=== PATIENT | male | born 1960 | race Caucasian/White ===

== ENCOUNTER 2016-08-04 09:03 | Outpatient (RCR) | payer BC ==
[~2016-08-04 09:03] MED LIST: ALEVE 220MG220 MG PO; HCTZ12.5TAB PO; NORCO 325 MG-51 TAB PO; NORVASC 5MG5 MG/TAB PO; NORVASC2.5 MG PO; PROTONIX20 MG PO
== END 2016-08-19 08:23 | disposition home or self-care (01) ==
LOC: MKS.ESL.PT 09:03
DX: Z01.818 Encounter for other preprocedural examination (principal); M25.861 Other specified joint disorders, right knee

== ENCOUNTER 2016-09-11 12:30 | Outpatient (RCR) | payer BC | END 2016-10-31 10:21 | disposition home or self-care (01) | LOC: MKS.ESL.PT 12:30 | DX: M25.561 Pain in right knee (principal) ==

== ENCOUNTER 2016-11-24 22:23 | Observation (INO) | payer BC ==
[2016-11-24] VITALS (36 sets, daily range): BP systolic 168; BP diastolic 103; PULSE 94; TEMP 98.4; O2SAT 88–99
[~2016-11-24] VITALS: Ht 177.8 cm; Wt 118.3 kg
[2016-11-24] MEDS ORDERED: FLEXERIL 1010 MG/TAB PO (23:49)
[2016-11-24] MEDS ORDERED: ULTRAM 50MG TAB50 MG PO (23:50)
[2016-11-24] MEDS ORDERED: PRILOSEC 20MG20 MG PO (23:50)
[2016-11-24] MEDS ORDERED: FLONASE NASAL S16 GM NS (23:51)
[2016-11-24] MEDS ORDERED: HYDRODIURIL50 MG PO (23:51)
[2016-11-24] MEDS ORDERED: CLARITIN 1010 MG/TAB PO (23:52)
[2016-11-24] MEDS ORDERED: B-12 100 MCG PO (23:56)
[2016-11-24] MEDS ORDERED: DULCOLAX STOOL100 MG PO (23:57)
[2016-11-25] VITALS (583 sets, daily range): BP systolic 121–149; BP diastolic 84–90; PULSE 79–85; TEMP 97.7–98.1; O2SAT 74–100
[2016-11-25 05:57] LABS: BASO % 0.8 % (0.0-2.0); EOS # 0.3 (0.0-0.7); EOS % 6.1 % (0-4.0); GRAN # 2.4 (1.4-6.5); GRAN % 47.8 % (42.2-75.2); HEMOGLOBIN 12.4 g/dl (13.5-18.0); LYMPH # 1.5 (1.2-3.4); LYMPH % 28.8 % (20.0-51.0); MEAN CELL VOLUME 87 fl (80.0-100.0); MEAN CORPUSCULAR HEMOGLOBIN 30 pg (27.0-31.0); MEAN CORPUSCULAR HGB CONC 34 g/dl (33.0-37.0); MONO # 0.8 (0.1-0.6); MONO % 15.9 % (1.7-9.3); PLATELET COUNT 194 K/mm3 (130-400); RED BLOOD COUNT 4.18 M/mm3 (4.20-5.60); REDCELL DISTRIBUTION WIDTH-CV 12.9 % (11.5-14.5); WHITE BLOOD COUNT 5.1 K/mm3 (4.8-10.8)
[2016-11-25 05:58] LABS: INR 1.1 (0.8-3.0); PROTHROMBIN TIME 12.7 SECONDS (9.7-12.8)
[2016-11-25 06:00] LABS: HEMATOCRIT 36.4 % (42.0-52.0)
[2016-11-25 06:32] LABS: CALCIUM 8.3 mg/dL (8.4-10.2); POTASSIUM 3.3 mmol/L (3.4-5.0)
== END 2016-11-25 20:25 | disposition home or self-care (01) ==
LOC: IMCU 22:23 → ICU 23:01 → SURG 23:01
PROVIDERS: Surgery
DX: S09.8XXA Other specified injuries of head, initial encounter (principal); S06.0X0A Concussion without loss of consciousness, initial encounter; R40.2413 Glasgow coma scale score 13-15, at hospital admission; S01.01XA Laceration without foreign body of scalp, initial encounter; S89.81XA Other specified injuries of right lower leg, initial encounter; Z87.898 Personal history of other specified conditions; Z87.820 Personal history of traumatic brain injury; V84.5XXA Driver of special agricultural vehicle injured in nontraffic accident, initial encounter; E66.9 Obesity, unspecified; Z91.81 History of falling; G47.33 Obstructive sleep apnea (adult) (pediatric); I10 Essential (primary) hypertension; Z87.891 Personal history of nicotine dependence; F10.21 Alcohol dependence, in remission; S49.82XA Other specified injuries of left shoulder and upper arm, initial encounter
CPT/HCPCS: G0378; G0379; J1170; J7120

== ENCOUNTER → 2017-04-16 | Outpatient (CLI) | payer BC ==
[~2017-04-16] MED LIST changes: +B-12 100 MCG PO; +CLARITIN 1010 MG/TAB PO; +DULCOLAX STOOL100 MG PO; +FLEXERIL 1010 MG/TAB PO; +FLONASE NASAL S16 GM NS; +HYDRODIURIL50 MG PO; +PRILOSEC 20MG20 MG PO; +ULTRAM 50MG TAB50 MG PO
[2017-04-16 13:26] LABS: HIV 1/2 Antibodies Non-Reactive; HIV-1p24 Antigen Non-Reactive
== END ==
LOC: COL.LAB 11:49
PROVIDERS: Orthopaedic Surgery
DX: Z01.812 Encounter for preprocedural laboratory examination (principal); M17.11 Unilateral primary osteoarthritis, right knee

== ENCOUNTER → 2018-04-21 | Outpatient (CLI) | payer BC ==
[2018-04-21 15:44] LABS: HIV-1p24 Antigen Non-Reactive
[2018-04-21 15:45] LABS: HIV 1/2 Antibodies Non-Reactive
== END ==
LOC: COL.LAB 14:21
PROVIDERS: Orthopaedic Surgery
DX: Z01.812 Encounter for preprocedural laboratory examination (principal); M17.12 Unilateral primary osteoarthritis, left knee

== ENCOUNTER → 2018-11-22 | Outpatient (CLI) | payer BC ==
[~2018-11-22] VITALS: Ht 177.8 cm; Wt 116.1 kg
[~2018-11-22] MED LIST changes: -B-12 100 MCG PO; +VITAMIN B12 781 TAB PO
[2018-11-22 06:05] VITALS: BP 154/80; PULSE 83
[2018-11-22 07:37] VITALS: BP 156/86; PULSE 106
[2018-11-22 07:38] VITALS: BP 133/81; PULSE 92
[2018-11-22 07:39] VITALS: BP 130/76; PULSE 90
== END ==
LOC: COL.CARD 05:45
DX: R07.9 Chest pain, unspecified (principal); I10 Essential (primary) hypertension; G47.33 Obstructive sleep apnea (adult) (pediatric)
CPT/HCPCS: A9500; J2785